=== PATIENT | female | born 1965 | race Caucasian/White ===

== ENCOUNTER 2022-06-08 15:41 | Observation (INO) ==
[2022-06-08] MEDS ORDERED: SODIUM CHLORIDE 0.9% 1000ML 2,000 ML IV ONE (16:03)
--- NOTE | 2022-06-08 16:07 | Emergency Department Note ---
Impression & Plan Syncope and collapse, Elevated troponin, Dehydration ED Provider Note NAME: FLACO AGUILERA AGE: 56 SEX: F : 1965 ARRIVES VIA: Ambulance INFORMANT: Patient ED PROVIDER(S): Derek Desai DO CHIEF COMPLAINT: syncope HPI: Patient is a 56-year-old female who presents the ER for syncopal episode. She was biking for about 2 hours and started not feeling well. She got off her bike and sat on a rock. She thinks she may have had some faint nausea. No chest pain or shortness of breath. No dysuria, urgency, or frequency. No belly pain. No other exacerbating or remitting factors. Following this she notes that she passed out. When she woke up she could not move her arms or legs. Her hands were clenched shut. When EMS arrived the tingling in her arms and legs completely resolved. ROS: See above HPI for pertinent positives & negatives. A total of 10 systems reviewed and were otherwise negative. PAST MEDICAL HISTORY:See Below PAST SURGICAL HISTORY:See Below FAMILY HISTORY:See Below SOCIAL HISTORY:See Below HOME MEDICATIONS:See Below ALLERGIES:See Below VITALS:See Below PHYSICAL EXAMINATION: GENERAL: Sitting up in bed, alert, well appearing, well nourished, no distress, non-toxic HEAD: Small abrasion over right chin EYE EXAM: normal conjunctiva. PERRL and EOM's grossly intact. OROPHARYNX: no exudate, no erythema, lips, buccal mucosa, and tongue normal and mucous membranes are moist NECK: supple, no nuchal rigidity, no adenopathy, non-tender LUNGS: Clear to auscultation. Normal chest wall mechanics HEART: no murmurs, S1 normal and S2 normal ABDOMEN: abdomen soft, non-tender, normo-active bowel sounds, no masses, no rebound or guarding. BACK: Back is symmetrical on inspection and there is no deformity, no midline tenderness, no CVA tenderness. SKIN: no rashes and no bruising UPPER EXTREMITIES: upper extremities are grossly normal. LOWER EXTREMITIES: No pitting edema. NEURO EXAM: Normal sensorium, cranial nerves II-XII intact, normal speech, no weakness of arms, no weakness of legs. No drift. Finger to nose intact. Gross sensation intact. MEDICAL DECISION MAKING: Patient is a 56-year-old female who presents ER for above-stated complaint. IV was established blood was obtained. Labs show a leukocytosis of 12,000. No significant anemia. D-dimer was negative. BMP with LFTs bilirubin and TSH was unremarkable. Troponin was elevated. COVID was negative. Patient was given IV fluids. Updated bedside. Discussed with hospitalist admitted for further work- up. Triage Nursing notes reviewed. Limited review of prior medical records performed Vital Signs: reviewed and remarkable for no significant abnormalities Differential diagnosis: Differential diagnosis includes etiologies such as vasovagal event, infection, hypoglycemia, electrolyte abnormalities, cardiac sources, intracerebral event, toxicologic, neurologic, as well as others were entertained. ER treatment provided: See below Diagnostics interpreted by me: ECG: Sinus rhythm rate 70 Left axis No PVCs QTC 434 Cardiac Monitoring: An order was placed for continuous cardiac monitoring. The monitor shows a rate of 71 with sinus rhythm. Laboratory studies: As stated above and show below. Imaging studies: Portable AP upright [address] head was negative Consultation(s): Discussed with hospitalist for further evaluation Procedures: none Critical Care: None Past Med/Surg History Medical History HTN (hypertension) Hypothyroidism Surgical History Hx of colonoscopy Family History Mother Breast cancer Hypertension Father Hypertension Daughter Aortic stenosis Social History Smoking Status: Never smoker Second Hand Exposure: No; Do You Dip or Chew Tobacco: No; Tobacco Cessation Education Requested by Patient: No Hx Alcohol Use: Yes Alcohol type: wine and hard liquor Alcohol Intake Frequency: 2-4 x/Month Hx Substance Use: No Preferred Language: Slovenian Communication Ability: Effective Body Sander Required: No Beliefs That Will Affect Care: None marital status: Current Living Situation: Spouse current occupational status: employed 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 Other Information That Helps Us Care for You: No Feels Safe at Home: Yes Safety Concerns: Feels Safe At This Time Assistive Devices: Glasses Allergies Allergies Allergy/AdvReac Type Severity Reaction Status Date / Time Sulfa (Sulfonamide Allergy Unknown Verified 06/08/22 18:18 Antibiotics) Home Meds Home Medications Medication Instructions Recorded Confirmed levothyroxine 75 mcg tablet 75 mcg PO DAILY 06/08/22 06/08/22 (Euthyrox) lisinopril 5 mg tablet 5 mg PO DAILY 06/08/22 06/08/22 Results & Data (ED) Vital Signs Vital Signs - 24 hr 06/08/22 15:55 06/08/22 15:55 06/08/22 15:55 Temperature 36.8 C Temperature Source Oral Pulse Rate 74 Pulse Rhythm Regular Respiratory Rate 19 Respiratory Effort / Characteristics Non-Labored Spontaneous Respiratory Depth Normal Respiratory Pattern Regular Blood Pressure 127/83 Blood Pressure Mean 97 Blood Pressure Position Lying Pulse Oximetry 98 98 98 Oxygen Delivery Method Room Air Room Air Room Air Oxygen Flow Rate 0 Sepsis Recent Fever Within 48 Hours No Sepsis New/Unexplained Change in Mental Status N/A Sepsis Action Taken by Nursing No Action Required 06/08/22 16:00 06/08/22 16:30 06/08/22 17:30 Temperature Temperature Source Pulse Rate 73 73 71 Pulse Rhythm Respiratory Rate 20 21 18 Respiratory Effort / Characteristics Respiratory Depth Respiratory Pattern Blood Pressure 116/76 116/78 115/79 Blood Pressure Mean 89 90 91 Blood Pressure Position Pulse Oximetry 98 97 96 Oxygen Delivery Method Room Air Oxygen Flow Rate Sepsis Recent Fever Within 48 Hours Sepsis New/Unexplained Change in Mental Status Sepsis Action Taken by Nursing 06/08/22 18:00 Temperature Temperature Source Pulse Rate 71 Pulse Rhythm Respiratory Rate 22 Respiratory Effort / Characteristics Respiratory Depth Respiratory Pattern Blood Pressure 122/89 Blood Pressure Mean 100 Blood Pressure Position Pulse Oximetry 97 Oxygen Delivery Method Oxygen Flow Rate Sepsis Recent Fever Within 48 Hours Sepsis New/Unexplained Change in Mental Status Sepsis Action Taken by Nursing Laboratory Data Result diagrams: 06/08/22 15:50 06/08/22 15:50 Lab Results 06/08/22 06/08/22 06/08/22 Range/Units 15:50 15:50 15:50 WBC 12.74 H (4.8-10.8) K/ul RBC 4.18 (3.93-5.22) M/uL Hgb 13.0 (12.0-16.0) g/dl Hct 37.9 (34.1-44.9) % MCV 90.7 (80.0-100.0) fL MCH 31.1 (25.0-34.0) pg MCHC 34.3 (32.0-36.0) g/dL RDW Std Deviation 40.5 (36.4-46.3) fL RDW Coeff of Mandy 12.2 (11.5-14.5) % Plt Count 240 (130-400) K/uL MPV 10.1 (9.4-12.3) fL Immature Gran % (Auto) 0.5 % Neut % (Auto) 78.1 % Lymph % (Auto) 12.6 % [place] % (Auto) 6.8 % Eos % (Auto) 1.7 % Baso % (Auto) 0.3 % Neut # (Auto) 9.95 H (1.4-6.5) K/uL Lymph # (Auto) 1.60 (1.2-3.4) K/uL [place] # (Auto) 0.87 H (0.24-0.82) K/uL Eos # (Auto) 0.22 (0-0.50) K/uL Baso # (Auto) 0.04 (0-0.2) K/uL Immature Gran # (Auto) 0.06 H (0.00-0.02) K/uL D-Dimer (0-500) ug/L FEU Sodium 140 (136-145) mmol/L Potassium 3.6 (3.5-5.1) mmol/L Chloride 107 (98-107) mmol/L Carbon Dioxide 21 (21-32) mmol/L Anion Gap 12 H (3-11) BUN 17 (6-23) mg/dl Creatinine 1.08 (0.6-1.2) mg/dl Est Cr Clr Drug Dosing 55.6 ml/min Est GFR ( Amer) 66.9 ml/min Est GFR (Non-Af Amer) 57.7 ml/min BUN/Creatinine Ratio 15.7 (10-20) Glucose 73 (70-99(Fasting)) mg/dl Calcium 9.1 (8.5-10.1) mg/dl Total Bilirubin 1.0 (0.2-1.0) mg/dl AST 19 (13-39) U/L ALT 12 (7-52) U/L Alkaline Phosphatase 70 (34-104) U/L Total Creatine Kinase 89 (26-192) U/L Troponin I High Sens 16.6 H (0-14) pg/ml Total Protein 6.6 (6.0-8.3) gm/dl Albumin 4.1 (3.4-5.0) gm/dl Globulin 2.5 (2.5-4.0) gm/dl Albumin/Globulin Ratio 1.6 (0.9-2) Lipase 27 (11-82) U/L 06/08/22 Range/Units 15:50 WBC (4.8-10.8) K/ul RBC (3.93-5.22) M/uL Hgb (12.0-16.0) g/dl Hct (34.1-44.9) % MCV (80.0-100.0) fL MCH (25.0-34.0) pg MCHC (32.0-36.0) g/dL RDW Std Deviation (36.4-46.3) fL RDW Coeff of Mandy (11.5-14.5) % Plt Count (130-400) K/uL MPV (9.4-12.3) fL Immature Gran % (Auto) % Neut % (Auto) % Lymph % (Auto) % [place] % (Auto) % Eos % (Auto) % Baso % (Auto) % Neut # (Auto) (1.4-6.5) K/uL Lymph # (Auto) (1.2-3.4) K/uL [place] # (Auto) (0.24-0.82) K/uL Eos # (Auto) (0-0.50) K/uL Baso # (Auto) (0-0.2) K/uL Immature Gran # (Auto) (0.00-0.02) K/uL D-Dimer 420 (0-500) ug/L FEU Sodium (136-145) mmol/L Potassium (3.5-5.1) mmol/L Chloride (98-107) mmol/L Carbon Dioxide (21-32) mmol/L Anion Gap (3-11) BUN (6-23) mg/dl Creatinine (0.6-1.2) mg/dl Est Cr Clr Drug Dosing ml/min Est GFR ( Amer) ml/min Est GFR (Non-Af Amer) ml/min BUN/Creatinine Ratio (10-20) Glucose (70-99(Fasting)) mg/dl Calcium (8.5-10.1) mg/dl Total Bilirubin (0.2-1.0) mg/dl AST (13-39) U/L ALT (7-52) U/L Alkaline Phosphatase (34-104) U/L Total Creatine Kinase (26-192) U/L Troponin I High Sens (0-14) pg/ml Total Protein (6.0-8.3) gm/dl Albumin (3.4-5.0) gm/dl Globulin (2.5-4.0) gm/dl Albumin/Globulin Ratio (0.9-2) Lipase (11-82) U/L Administered Medications Enoxaparin Sodium (Enoxaparin Inj 40 Mg/0.4 Ml Syr) 40 mg SQ Q24H GISELL Stop: 07/08/22 21:29 Last Admin: 06/08/22 21:49 Dose: 40 mg Documented By: BASIM Lactated Ringer's (Lr) 1,000 mls @ 80 mls/hr IV .[id number] GISELL Stop: 06/09/22 09:25 Last Admin: 06/08/22 21:25 Dose: 80 mls/hr Documented By: BASIM Discontinued Medications Sodium Chloride (Nss 1000ml) 2,000 mls @ 999 mls/hr IV .[id number] ONE Stop: 06/08/22 18:03 Last Infusion: 06/08/22 18:16 Dose: 0 mls/hr Documented By: Admin: 06/08/22 16:12 Dose: 999 mls/hr Documented By: OA Imaging Data Radiologist's Impression: Chest X-Ray 06/08/22 15:51 SINGLE VIEW CHEST CLINICAL HISTORY: Fall. Atypical chest pain. FINDINGS: An AP, portable, upright chest radiograph is obtained. No prior studies are available for comparison at the time of dictation. The cardiomediastinal silhouette is unremarkable. The lungs and pleural spaces are clear. No pneumothorax is seen. The bony thorax is grossly intact. IMPRESSION: No active disease in the chest. ACT 112: Negative or not required by law. Electronically signed by: Mian Baker M.D. 06/08/2022 4:[address] 06/08/22 16:03 CT SCAN OF THE BRAIN WITHOUT IV CONTRAST CLINICAL HISTORY: Syncope. COMPARISON STUDY: No priors P TECHNIQUE: Unenhanced axial CT scan of the brain is performed from the vertex to the skull base. A dose lowering technique was utilized adhering to the principles of ALARA. CT DOSE: 614.27 mGy.cm FINDINGS: Brain parenchyma: There is minimal microangiopathic change. There is no hemorrhage, mass effect, or evidence of acute territorial ischemia by CT criteria. Dwyer-white matter differentiation is preserved. No extra-axial fluid collection is seen. Ventricles, sulci, cisterns: Normal in configuration. Intracranial vasculature: The visualized intracranial vasculature at the skull base is normal in appearance. Calvarium: Unremarkable. Sinuses and mastoids: The visualized paranasal sinuses are clear. The mastoid air cells are well pneumatized. Orbits: The bony orbits are grossly intact. IMPRESSION: There is no hemorrhage, mass effect, or evidence of acute territorial ischemia by CT criteria. ACT 112: Negative or not required by law. Electronically signed by: Mian Baker M.D. 06/08/2022 5:13 PM Discharge Plan Visit Data Chief Complaint: Syncope Stated Complaint: syncope ED Provider: Derek Desai Discharge Problem: Syncope and collapse, Elevated troponin, Dehydration Patient Disposition: Admitted As Inpatient Discharge Instructions Interventions: ED Discharge Assessment Last Done: 06/08/22 20:20
[2022-06-08 16:13] LABS: Basophils # (auto) 0.04 K/uL (0-0.2); Basophils % (auto) 0.3 %; Eosinophils # (auto) 0.22 K/uL (0-0.50); Eosinophils % (auto) 1.7 %; Hematocrit (blood only) 37.9 % (34.1-44.9); Immature Granulocytes # (auto) 0.06 K/uL (0.00-0.02); Immature Granulocytes % (auto) 0.5 %; Lymphocytes % (auto) 12.6 %; Mean Corpuscular Hemoglobin 31.1 pg (25.0-34.0); Mean Corpuscular Hgb Conc 34.3 g/dL (32.0-36.0); Mean Corpuscular Volume 90.7 fL (80.0-100.0); Mean Platelet Volume 10.1 fL (9.4-12.3); Monocytes # (auto) 0.87 K/uL (0.24-0.82); Monocytes % (auto) 6.8 %; Neutrophils # (auto) 9.95 K/uL (1.4-6.5); Neutrophils % (auto) 78.1 %; Platelet Count 240 K/uL (130-400); RDW Coefficient of Variation 12.2 % (11.5-14.5); RDW Standard Deviation 40.5 fL (36.4-46.3); Red Blood Count 4.18 M/uL (3.93-5.22); White Blood Count 12.74 K/ul (4.8-10.8)
--- NOTE | 2022-06-08 16:15 | Electrocardiogram Report ---
Test Reason : Blood Pressure : / mmHG Vent. Rate : 074 BPM Atrial Rate : 074 BPM P-R Int : 148 ms QRS Dur : 082 ms QT Int : 418 ms P-R-T Axes : 025 031 049 degrees QTc Int : 463 ms Poor data quality, interpretation may be adversely affected Normal sinus rhythm Normal ECG No previous ECGs available Confirmed by Hua Maynard ([id number]) on 06/08/2022 4:14:52 PM Referred By: Confirmed By:Hua Maynard
[2022-06-08 16:31] LABS: Albumin Globulin Ratio 1.6 (0.9-2); Albumin Level 4.1 gm/dl (3.4-5.0); BUN Creatinine Ratio 15.7 (10-20); Calcium 9.1 mg/dl (8.5-10.1); Creatinine Clr Calc Pharmacy 55.6 ml/min; Est GFR (African American) 66.9 ml/min; Est GFR (Non-African American) 57.7 ml/min; Globulin 2.5 gm/dl (2.5-4.0); Potassium 3.6 mmol/L (3.5-5.1); Total Protein 6.6 gm/dl (6.0-8.3)
[2022-06-08 16:42] LABS: Troponin I High Sensitivity 16.6 pg/ml (0-14)
--- NOTE | 2022-06-08 16:48 | XRay Report ---
SINGLE VIEW CHEST CLINICAL HISTORY: Fall. Atypical chest pain. FINDINGS: An AP, portable, upright chest radiograph is obtained. No prior studies are available for c omparison at the time of dictation. The cardiomediastinal silhouette is unremarkable. The lungs and p leural spaces are clear. No pneumothorax is seen. The bony thorax is grossly intact. IMPRESSION: No active disease in the chest. ACT 112: Negative or not required by law. Electronically signed by: Mian Baker M.D. 06/08/2022 4:46 PM
--- NOTE | 2022-06-08 17:15 | CT Scan Report ---
CT SCAN OF THE BRAIN WITHOUT IV CONTRAST CLINICAL HISTORY: Syncope. COMPARISON STUDY: No priors P TECHNIQUE: Unenhanced axial CT scan of the brain is performed from the vertex to the skull base. A d ose lowering technique was utilized adhering to the principles of ALARA. CT DOSE: 614.27 mGy.cm FINDINGS: Brain parenchyma: There is minimal microangiopathic change. There is no hemorrhage, mass effect, or e vidence of acute territorial ischemia by CT criteria. Dwyer-white matter differentiation is preserved. No extra-axial fluid collection is seen. Ventricles, sulci, cisterns: Normal in configuration. Intracranial vasculature: The visualized intracranial vasculature at the skull base is normal in appe arance. Calvarium: Unremarkable. Sinuses and mastoids: The visualized paranasal sinuses are clear. The mastoid air cells are well pneu matized. Orbits: The bony orbits are grossly intact. IMPRESSION: There is no hemorrhage, mass effect, or evidence of acute territorial ischemia by CT crit zuleyma. ACT 112: Negative or not required by law. Electronically signed by: Mian Baker M.D. 06/08/2022 5:13 PM
--- NOTE | 2022-06-08 18:27 | History & Physical Report ---
Date of Service June 08, 2022 Assessment & Plan (1) Syncope and collapse: (2) Elevated troponin: (3) Dehydration: (4) HTN (hypertension): (5) Hypothyroidism: (6) Heat syncope, initial encounter: Plan This is a 56-year-old female who has significant past medical history of HTN and hypothyroidism who presents to ED after experiencing a syncope event prior to arrival. Patient experienced syncopal episode after approximately 2-2.5hr bike ride that ended up a steep incline on [facility]. She is normotensive in ED. Her troponin was mildly elevated at 16. She has never experienced any like this in the past. She is very active at baseline. Only thing she ate prior to and during bike ride was a handful of nuts and dried fruit. Initial glucose 73 and troponin 16.6. She received 2 L of IV fluid in ED. Her symptoms have mostly resolved after receiving IV fluid. Syncope and collapse Elevated troponin Concern for exertional syncope in setting of extreme exercise, heat exhaustion or heat illness and dehydration can't rule out cardiogenic syncope, yet pt was normotensive on arrival, temp was normal, admitting glucose 72, CK normal Admit to telemetry for observation Monitor on telemetry for any arrhythmia, would recommend outpatient ZIO monitor if telemetry unrevealing Continue gentle IV fluid with LR at 80 cc/h for additional liter Encourage nutrition Obtain echocardiogram -last 2018 with preserved EF, mild tricuspid regurg Repeat troponin in 2 hours mildly elevated 22.6, cycle every 6 hours, no CP or ecg change EKG in the morning Obtain D-dimer, if elevated obtain CTA chest and dopplers Monitor vitals closely, obtain orthostatics Dehydration Baseline creatinine 0.7 Creatinine 1.08 Continue to administer gentle IV fluid BMP in the morning Hypertension Hold lisinopril for now Reassess tomorrow to resume Hypothyroidism Obtain TSH Continue levothyroxine DVT prophylaxis: Lovenox Dispo: PCU, likely discharge in a.m. if work-up unremarkable Full code PCP: Sonja Pt was seen and examined in collaboration with Dr. Jay, please see addendum History of Present Illness Chief Complaint: Syncope prior to arrival Primary Care Provider: Morris Casillas MD This is a 56-year-old female who has significant past medical history of HTN and hypothyroidism who presents to ED after experiencing a syncope event prior to arrival. Her is at bedside. Patient was out for a bike ride by herself this afternoon. She did not eat anything for breakfast. While biking she did have a handful of nuts and dried fruit. She also drank approximately 20 ounces of water. She was biking for about 2 to 2-1/2 hours. She was going up and down [place] [employer]. She was climbing to the top of the mountain when she became very fatigued. She got off of her bike to get a drink of water and a snack and sat on a rock. While sitting on the rocks she felt very tired and very fatigued. Her legs were very sore. She called her to let him know where she was and that she was not feeling well. He encouraged her to get into the shade and to lie down. She then felt, "not right in the head." The next thing she knew she was off of the rock and laying sideways on her back. She has no known injury other than an abrasion to her chin and her legs are still sore. She is unsure how long she may have passed out for. She approximates 10 minutes or less. She first called her at about 2:00. He then talked to her again at 202. called EMS. She states that she she felt very frightened like she was, "dying." She denied losing bowel or bladder. She denies recent illness. She did have COVID in February with relatively mild symptoms. She denies fever, chills, sweats, chest pain, shortness of breath, URI symptoms, nausea, vomiting, abdominal pain, change in bowel or urinary habits. Her symptoms currently have resolved. In route patient did receive 1 L of IV fluid. She also had a sensation of her arms and legs tensing up. She was unable to move her arms and legs and had a numbness and tingling sensation a sending from her feet all the way to her shoulders. In ED she received 2 L of IV fluid. She was normotensive and temperature was normal. Her EKG was unremarkable. Initial troponin was mildly elevated at 16. Her head CT and chest x-ray was negative for any acute abnormality. She is a very active individual walking approximately 3-5 times a week. She typically goes for a long bike ride at least once every other week. Her bike rides typically do exceed 2 hours in duration. She has no known family history of any [place] or sudden . Her mother is of breast cancer. She has a strong family history of hypertension. Her daughter does have a history of aortic stenosis and history of CVA. Allergies Allergy/AdvReac Type Severity Reaction Status Date / Time Sulfa (Sulfonamide Allergy Unknown Verified 06/08/22 18:18 Antibiotics) Home Medications Medication Instructions Recorded Confirmed Type levothyroxine 75 mcg tablet 75 mcg PO DAILY 06/08/22 06/08/22 History (Euthyrox) lisinopril 5 mg tablet 5 mg PO DAILY 06/08/22 06/08/22 History Past Med/Surg History Medical History HTN (hypertension) Hypothyroidism Surgical History Hx of colonoscopy Family History Mother Breast cancer Hypertension Father Hypertension Daughter Aortic stenosis Social History Smoking Status: Never smoker Second Hand Exposure: No; Do You Dip or Chew Tobacco: No; Tobacco Cessation Education Requested by Patient: No Hx Alcohol Use: Yes Alcohol type: wine and hard liquor Alcohol Intake Frequency: 2-4 x/Month Hx Substance Use: No Preferred Language: Syriac Communication Ability: Effective Manager Neonatal Required: No Beliefs That Will Affect Care: None marital status: Current Living Situation: Spouse current occupational status: employed 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 Other Information That Helps Us Care for You: No Feels Safe at Home: Yes Safety Concerns: Feels Safe At This Time Assistive Devices: Glasses Review of Systems Review of Systems: All systems reviewed & are unremarkable except as noted in HPI & below Physical Exam Physical Exam: Constitutional: WD/WN, vitals as above, NAD, sitting up in bed, pleasant, conversing easily Head: Normocephalic, Atraumatic Eyes: PERRL, conjunctivae normal, anicteric sclerae ENMT: external ear and nose normal, oropharynx normal Neck: trachea midline, no thyromegaly normal visual inspection Respiratory: normal respiratory effort, lungs clear to auscultation, no wheeze, rales, rhonchi. Normal insp/exp effort, no accessory muscle use Cardiovascular: RRR, no murmur, no edema Vessels: no JVD or carotid bruit Chest: normal inspection of chest Abdomen: normal bowel sounds, soft, nontender, no hepatosplenomegaly Musculoskeletal: no cyanosis or clubbing, extremities motor strength 5/5 Skin: no rashes, warm and dry normal turgor Neurologic: PERRL, EOMI, accommodation nl, no face palsy, no dysarthria CN's II-XI intact bilaterally and moves all extremities Psychiatric: A+Ox3, euthymic affect Lymphatic: no cervical or axillary lymphadenopathy : deferred Results & Data Results & Data ([facility]) Vital Signs (Past 12 Hours) Vital Signs Temp Pulse Resp BP Pulse Ox O2 Del Method O2 Flow Rate 06/08/22 16:30 73 21 116/78 97 Room Air 06/08/22 16:00 73 20 116/76 98 06/08/22 15:55 98 Room Air 06/08/22 15:55 98 Room Air 0 06/08/22 15:55 36.8 C 74 19 127/83 98 Room Air Diagnostic Findings Chest X-Ray 06/08/22 15:51 SINGLE VIEW CHEST CLINICAL HISTORY: Fall. Atypical chest pain. FINDINGS: An AP, portable, upright chest radiograph is obtained. No prior studies are available for comparison at the time of dictation. The cardiomediastinal silhouette is unremarkable. The lungs and pleural spaces are clear. No pneumothorax is seen. The bony thorax is grossly intact. IMPRESSION: No active disease in the chest. ACT 112: Negative or not required by law. Electronically signed by: Mian Baker M.D. 06/08/2022 4:[address] 06/08/22 16:03 CT SCAN OF THE BRAIN WITHOUT IV CONTRAST CLINICAL HISTORY: Syncope. COMPARISON STUDY: No priors P TECHNIQUE: Unenhanced axial CT scan of the brain is performed from the vertex to the skull base. A dose lowering technique was utilized adhering to the principles of ALARA. CT DOSE: 614.27 mGy.cm FINDINGS: Brain parenchyma: There is minimal microangiopathic change. There is no hemorrhage, mass effect, or evidence of acute territorial ischemia by CT criteria. Dwyer-white matter differentiation is preserved. No extra-axial fluid collection is seen. Ventricles, sulci, cisterns: Normal in configuration. Intracranial vasculature: The visualized intracranial vasculature at the skull base is normal in appearance. Calvarium: Unremarkable. Sinuses and mastoids: The visualized paranasal sinuses are clear. The mastoid air cells are well pneumatized. Orbits: The bony orbits are grossly intact. IMPRESSION: There is no hemorrhage, mass effect, or evidence of acute territorial ischemia by CT criteria. ACT 112: Negative or not required by law. Electronically signed by: Mian Baker M.D. 06/08/2022 5:13 PM Medications Administered Medication List Discontinued Medications Sodium Chloride (Nss 1000ml) 2,000 mls @ 999 mls/hr IV .Q2H1M ONE Stop: 06/08/22 18:03 Last Infusion: 06/08/22 18:16 Dose: 0 mls/hr Documented By: Admin: 06/08/22 16:12 Dose: 999 mls/hr Documented By: OAM ECG Rate (beats per minute): 74 Rhythm: normal sinus Additional Comments: qtc 463ms COVID-19 Results Results COVID-19 Adm Lab Results: RBC 4.18 M/uL (3.93-5.22) 06/08/22 WBC 12.74 K/ul (4.8-10.8) H 06/08/22 Hgb 13.0 g/dl (12.0-16.0) 06/08/22 Hct 37.9 % (34.1-44.9) 06/08/22 Plt Count 240 K/uL (130-400) 06/08/22 Neutrophils (%) (Auto) 78.1 % 06/08/22 Lymphocytes (%) (Auto) 12.6 % 06/08/22 Monocytes # (Auto) 0.87 K/uL (0.24-0.82) H 06/08/22 Eosinophils # (Auto) 0.22 K/uL (0-0.50) 06/08/22 Immature Granulocyte % (Auto) 0.5 % 06/08/22 Neutrophils # (Auto) 9.95 K/uL (1.4-6.5) H 06/08/22 Lymphocytes # (Auto) 1.60 K/uL (1.2-3.4) 06/08/22 Monocytes # (Auto) 0.87 K/uL (0.24-0.82) H 06/08/22 Eosinophils # (Auto) 0.22 K/uL (0-0.50) 06/08/22 Basophils # (Auto) 0.04 K/uL (0-0.2) 06/08/22 Immature Granulocyte # (Auto) 0.06 K/uL (0.00-0.02) H 06/08 Na 140 mmol/L (136-145) 06/08/22 K 3.6 mmol/L (3.5-5.1) 06/08/22 Cl 107 mmol/L (98-107) 06/08/22 CO2 21 mmol/L (21-32) 06/08/22 Anion Gap 12 (3-11) H 06/08/22 BUN 17 mg/dl (6-23) 06/08/22 Creatinine 1.08 mg/dl (0.6-1.2) 06/08/22 BUN/Creatinine Ratio 15.7 (10-20) 06/08/22 Glucose Level 73 mg/dl (70-99(Fasting)) 06/08/22 Ca 9.1 mg/dl (8.5-10.1) 06/08/22 Total Bilirubin 1.0 mg/dl (0.2-1.0) 06/08/22 AST/SGOT 19 U/L (13-39) 06/08/22 ALT/SGPT 12 U/L (7-52) 06/08/22 Alkaline Phosphatase 70 U/L (34-104) 06/08/22 Total Protein 6.6 gm/dl (6.0-8.3) 06/08/22 Albumin 4.1 gm/dl (3.4-5.0) 06/08/22 Globulin 2.5 gm/dl (2.5-4.0) 06/08/22 Albumin/Globulin Ratio 1.6 (0.9-2) 06/08/22 Total CK 89 U/L (26-192) 06/08/22 D-Dimer 420 ug/L FEU (0-500) 06/08/22 SARS-CoV-2, RNA, NAAT NEGATIVE (NEGATIVE) 06/08/22 Chest X-Ray 06/08/22 Code Status & VTE Plan Code Status FULL CODE VTE Prophylaxis Plan VTE Prophylaxis will be ordered: Yes Supervising Physician Co-Signing Physician Notes I have seen and examined the patient and have discussed the case with the provider above. I agree with the assessment and plan as stated. 56 yo athletic female who suffered a syncopal episode while in the summer heat with little food or water after a strenuous 2 hour bike ride up hills. This is consistent with heat syncope with exercise associated collapse. She described waking up with severe cramping in her hands and paresthesias bilaterally. This is likely associated with her strenuous exercise and resolved shortly after recovery (within the hour). She has no current stroke symptoms, nor does she describe any in the field. Notably her glucose is only 73 an hour after she arrived to the ER, suggestive of a relative hypoglycemia contributing to symptoms. She did not feel overwhelmed by the heat, has no evidence of ACS currently. She has many questions related to percent blockage of arteries and could this be her heart? We discussed the process of screening for this overnight and the importance of alerting staff to any paini or SOB or other symptoms. She has not experienced this while exercising in the past. She is fully back to baseline now and physical exam is unremarkable with no gross focal neurologic deficits. Labwork reflects a mild or newly developing dehydration. She has normal electrolytes. Glucose as noted above. CK is normal. Trop is mildly elevated, with repeat pending. Exercise associated collapse, rule out underlying conduction abnormality or other structural cause with echo. Cardiology consult in am. Trend EKG and trop overnight. Give intravenous fluids. Educated on the importance of using sports drinks, hydrating and having enough food prior to strenuous exercise. Pierre,
[2022-06-08 19:38] LABS: D Dimer 420 ug/L FEU (0-500)
[2022-06-08] MEDS ORDERED: ALUMINUM/MAGNESIUM SUSP 30 ML UDC PO PRN (20:56)
[2022-06-08] MEDS ORDERED: MAGNESIUM HYDROXIDE SUSP 30 ML UDC PO PRN (20:56)
[2022-06-08] MEDS ORDERED: LACTATED RINGER'S 1,000 ML IV SCH (20:56)
[2022-06-08] MEDS ORDERED: PROMETHAZINE HCL 6.25 MG in SODIUM CHLORIDE 0.9% 50 ML IV PRN (20:56)
[2022-06-08] MEDS ORDERED: ACETAMINOPHEN 325 MG TAB PO PRN (20:56)
[2022-06-08] MEDS ORDERED: POLYETHYLENE (MIRALAX) 17 GM PACK PO PRN (20:56)
[2022-06-08] MEDS: ENOXAPARIN INJ 40 MG/0.4 ML SYR SQ SCH (21:49)
[2022-06-09] MEDS: LEVOTHYROXINE SODIUM 75 MCG TABLET PO SCH (05:37)
[2022-06-09] MEDS ORDERED: ATROPINE SULFATE 0.1 MG/ML 10ML SYR IV PRN (06:04)
[2022-06-09] MEDS ORDERED: LEVOTHYROXINE SODIUM 75 MCG TABLET PO SCH (09:00)
[2022-06-09 09:54] LABS: Basophils # (auto) 0.04 K/uL (0-0.2); Basophils % (auto) 0.6 %; Eosinophils # (auto) 0.66 K/uL (0-0.50); Eosinophils % (auto) 9.6 %; Hemoglobin 11.6 g/dl (12.0-16.0); Immature Granulocytes # (auto) 0.02 K/uL (0.00-0.02); Immature Granulocytes % (auto) 0.3 %; Lymphocytes # (auto) 2.25 K/uL (1.2-3.4); Lymphocytes % (auto) 32.9 %; Mean Corpuscular Hemoglobin 30.9 pg (25.0-34.0); Mean Corpuscular Hgb Conc 33.1 g/dL (32.0-36.0); Mean Corpuscular Volume 93.3 fL (80.0-100.0); Mean Platelet Volume 10.1 fL (9.4-12.3); Monocytes # (auto) 0.37 K/uL (0.24-0.82); Monocytes % (auto) 5.4 %; Neutrophils % (auto) 51.2 %; Platelet Count 194 K/uL (130-400); RDW Coefficient of Variation 12.7 % (11.5-14.5); RDW Standard Deviation 43.8 fL (36.4-46.3); Red Blood Count 3.75 M/uL (3.93-5.22); White Blood Count 6.84 K/ul (4.8-10.8)
[2022-06-09 10:21] LABS: Albumin Globulin Ratio 1.7 (0.9-2); Albumin Level 3.8 gm/dl (3.4-5.0); BUN Creatinine Ratio 21.1 (10-20); Bilirubin,Total 0.9 mg/dl (0.2-1.0); Creatinine Clr Calc Pharmacy 85.5 ml/min; Est GFR (African American) 111.1 ml/min; Est GFR (Non-African American) 95.9 ml/min; Globulin 2.3 gm/dl (2.5-4.0); Magnesium 1.9 mg/dl (1.7-2.4); Potassium 4.1 mmol/L (3.5-5.1); Total Protein 6.1 gm/dl (6.0-8.3)
[2022-06-09 10:53] LABS: Lyme Ab IgG w/WB Rflx Negative (Negative)
[2022-06-09 11:08] LABS: Lyme Ab IgM w/WB Rflx Equivocal (Negative)
--- NOTE | 2022-06-09 11:39 | Cardiology Consultation ---
Date of Consultation June 09, 2022 Assessment & Plan (1) Heat syncope, initial encounter: (2) Dehydration: (3) Elevated troponin: (4) HTN (hypertension): (5) Hypothyroidism: Plan Patient presents with a syncopal event in the setting of extreme exercise and volume depletion. No arrhythmias on monitor. Structurally normal heart by echocardiogram. No ischemic EKG changes. Minimal troponin elevation likely secondary to extreme exercise. No cardiac source for syncopal event found. No further cardiac test intervention necessary at this time. No cardiac follow-up necessary. Okay to discharge to home from a cardiac standpoint. History of Present Illness Reason for Consultation: Syncope Requesting Physician: [facility] hospitalist group Attending Physician: Wai Santo MD History of Present Illness It was my pleasure to see Mrs. Obrien in cardiac consultation today June 09, 2022. The patient is a very pleasant, athletic and healthy 56-year-old woman who presented to [facility] after a syncopal event. She states that she was almost 3 hours into an outdoor bike ride yesterday when she stopped to rest and drink some fluids when she lost consciousness. She states that as she was sitting there she did start developing numbness and tingling in her extremities along with lightheadedness and she lost consciousness. She denied any associated chest pain, shortness of breath or palpitations. She denies any previous similar episodes. She states that she was drinking water yesterday but notes that she did not have to micturate during her 3-hour ride. Patient Active Problem List Diagnosis Code ADJ DISORDER W/DEPRES MOOD F43.21 Hypothyroidism E03.9 Systolic murmur R01.1 Diastolic dysfunction I51.89 Mild tricuspid regurgitation I07.1 Hx of nonmelanoma skin cancer Z85.828 Essential hypertension with goal blood pressure less than 130/80 I10 Allergies Allergy/AdvReac Type Severity Reaction Status Date / Time Sulfa (Sulfonamide Allergy Unknown Verified 06/08/22 18:18 Antibiotics) Home Medications Medication Instructions Recorded Confirmed Type levothyroxine 75 mcg tablet 75 mcg PO DAILY 06/08/22 06/08/22 History (Euthyrox) lisinopril 5 mg tablet 5 mg PO DAILY 06/08/22 06/08/22 History Patient History Medical History HTN (hypertension) Hypothyroidism Surgical History Hx of colonoscopy Family History Mother Breast cancer Hypertension Father Hypertension Daughter Aortic stenosis Social History Smoking Status: Never smoker Second Hand Exposure: No; Do You Dip or Chew Tobacco: No; Tobacco Cessation Education Requested by Patient: No Hx Alcohol Use: Yes Alcohol type: wine and hard liquor Alcohol Intake Frequ ency: 2-4 x/Month Hx Substance Use: No Preferred Language: Armenian Communication Ability: Effective Memorial Counselor Required: No Beliefs That Will Affect Care: None marital status: Current Living Situation: Spouse current occupational status: 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 No acute distress. HEENT: Normocephalic, atraumatic. Pupils equal, round and reactive to light and accommodation. Extraocular muscles are intact. Anicteric sclera. Moist mucous membranes. Neck: No JVD. No bruit. Cardiovascular: Regular. No S-4. Normal S-1 and S-2. No S-3. No murmurs, rubs or gallops. Pulmonary: Clear to auscultation bilaterally. No rales, rhonchi, or wheezing. Abdomen: Bowel sounds x 4, soft. No rebound, guarding or tenderness. No organomegaly. Extremities: No clubbing, cyanosis or edema. +2 pedal pulses bilaterally. Skin: Warm and dry. Results & Data ([facility]) Vital Signs (Past 12 Hours) Vital Signs Temp Pulse Pulse Resp BP Pulse Ox O2 Del Method 06/09/22 08:00 46 L 06/09/22 08:00 36.5 C 61 16 121/68 06/09/22 07:29 36.6 C 58 L 16 111/71 100 Room Air 06/09/22 06:04 45 L 16 131/79 98 Room Air 06/09/22 03:11 36.3 C L 51 L 17 105/65 97 Room Air 06/09/22 03:14 65 128/84 06/09/22 03:13 69 116/76 06/09/22 03:11 36.3 C L 51 L 17 105/65 97 Room Air
--- NOTE | 2022-06-09 14:11 | Magnetic Resonance Report ---
MRI OF THE BRAIN WITHOUT CONTRAST CLINICAL HISTORY: Syncope, R/O CVA COMPARISON STUDY: Head CT June 08, 2022. TECHNIQUE: Utilizing a 1.5 Jaida magnet and dedicated coil, multiplanar, multiecho imaging of the bra in was performed without IV contrast. FINDINGS: There are no foci of restricted diffusion to suggest acute infarct. No acute intracranial h emorrhage, midline shift or mass effect is present. Ventricular system is normal. Basal cisterns are patent. There are no extra-axial collections. Flow-voids for the major intracranial vessels are prese nt. Scattered white matter T2 hyperintense foci are noted. The largest is a 1 cm subcortical focus wi thin the right frontal lobe on coronal FLAIR sequences image 8 of . Calvarial signal is within norm al limits. There is minimal mucosal thickening of the inferior left maxillary sinus. IMPRESSION: 1. No acute intracranial findings. 2. Scattered white matter T2 hyperintense foci, including a 1 cm subcortical focus within the right f rontal lobe. Although indeterminate, this statistically reflects small vessel disease. Demyelinating process or underlying lesion are considered less likely. Follow-up MRI the brain with and without con trast in 3 months is recommended. ACT 112: Negative or not required by law. Electronically signed by: Kartik Javier M.D. 06/09/2022 2:09 PM
--- NOTE | 2022-06-09 14:12 | Hospitalist Progress Note ---
Date of Service June 09, 2022 Assessment & Plan (1) Syncope and collapse: (2) Elevated troponin: (3) Dehydration: (4) HTN (hypertension): (5) Hypothyroidism: (6) Heat syncope, initial encounter: Plan Patient is a 56 yr female who has significant past medical history of HTN and hypothyroidism who presents to ED after experiencing a syncope event prior to arrival. Syncope DD: Dehydration, Hypoglycemia, Hypotension, Heat Exhaustion, R/O Seizure-although less likely Unclear Etiology Suspected small vessel disease --MRI Brain:No acute intracranial findings. Scattered white matter T2 hyperintense foci, including a 1 cm subcortical focus within the right frontal lobe. Although indeterminate, this statistically reflects small vessel disease. Demyelinating process or underlying lesion are considered less likely. Follow-up MRI the brain with and without contrast in 3 months is recommended. --CT Head:There is no hemorrhage, mass effect, or evidence of acute territorial ischemia by CT criteria. --ECHO: Normal study --Mild elevation of Troponin likely due to severe exercise --Check Lipid Panel --Lyme Screen pending. --EEG pending --Check Orthostatics --Monitor for any Arrhythmia -- Appreciate Cardiology Input --Will need repeat MRI brain with Contrast in 3 months and follow up with Neurology upon discharge --No driving recommended until cleared by Neurology upon discharge --No indication for Aspirin currently. Discussed with Neurologist magnetic resonance imaging coordinator. on 06/09/22 Dehydration Received IV fluids Hypertension Held lisinopril BP stable Resume meds as able Hypothyroidism TSH normal Continue levothyroxine DVT Px: Lovenox SQ Dispo: PCU, likely discharge in a.m. if work-up unremarkable Full code PCP: Sonja Admission and Anticipated Discharge Date Admission Date: June 08, 2022 Subjective Patient is seen and examined at bedside States feeling well today Denies any chest pain, shortness of breath, dizziness, nausea, abdominal pain Family at bedside Discussed with neurology today Review of Systems Review of Systems: All systems reviewed & are unremarkable except as noted in Subjective Physical Exam Physical Exam: Physical Exam: Vitals signs as noted above General Appearance:Moderately built and nourished, no apparent distress Head: normocephalic, Atraumatic Eyes: normal inspection, EOMI Neck: supple, Trachea midline Respiratory/Chest: Normal breath sounds, CTA, No accessory muscle use Cardiovascular: S1, S2, No murmur Abdomen/GI:Soft, Non tender, Bowel sounds present Extremities/Musculoskeletal:normal inspection, no edema Neurologic/Psych:AAOX3, grossly no focal neurological deficits Skin: normal color, warm Results & Data Results & Data ([facility]) Vital Signs (Past 12 Hours) Vital Signs Temp Pulse Pulse Resp BP Pulse Ox O2 Del Method 06/09/22 11:47 36.7 C 80 20 121/80 94 06/09/22 08:00 46 L 06/09/22 08:00 36.5 C 61 16 121/68 06/09/22 07:29 36.6 C 58 L 16 111/71 100 Room Air 06/09/22 06:04 45 L 16 131/79 98 Room Air 06/09/22 03:11 36.3 C L 51 L 17 105/65 97 Room Air 06/09/22 03:14 65 128/84 06/09/22 03:13 69 116/76 06/09/22 03:11 36.3 C L 51 L 17 105/65 97 Room Air Laboratory Results Short CBC 06/08/22 06/09/22 Range/Units 15:50 09:18 WBC 12.74 H 6.84 (4.8-10.8) K/ul Hgb 13.0 11.6 L (12.0-16.0) g/dl Hct 37.9 35.0 (34.1-44.9) % Plt Count 240 194 (130-400) K/uL BMP 06/08/22 06/09/22 15:50 09:18 Sodium 140 141 Potassium 3.6 4.1 Chloride 107 109 H Carbon Dioxide 21 27 BUN 17 15 Creatinine 1.08 0.71 D Glucose 73 110 H Calcium 9.1 9.0 Cardiac Enzymes 06/08/22 06/09/22 Range/Units 15:50 09:18 Total Creatine Kinase 89 865 H (26-192) U/L Liver Function 06/08/22 06/09/22 Range/Units 15:50 09:18 Total Bilirubin 1.0 0.9 (0.2-1.0) mg/dl AST 19 45 H (13-39) U/L ALT 12 21 (7-52) U/L Alkaline Phosphatase 70 61 (34-104) U/L Albumin 4.1 3.8 (3.4-5.0) gm/dl
[2022-06-09] MEDS: ENOXAPARIN INJ 40 MG/0.4 ML SYR SQ SCH (20:14)
--- NOTE | 2022-06-09 20:35 | Electrocardiogram Report ---
Test Reason : Blood Pressure : / mmHG Vent. Rate : 048 BPM Atrial Rate : 048 BPM P-R Int : 180 ms QRS Dur : 072 ms QT Int : 468 ms P-R-T Axes : 065 017 041 degrees QTc Int : 418 ms Sinus bradycardia Otherwise normal ECG When compared with ECG of 08-JUN-2022 15:47, Vent. rate has decreased BY 26 BPM Confirmed by Hua Maynard ([id number]) on 06/09/2022 8:35:13 PM Referred By: REFERRED SELF Confirmed By:Hua Maynard
[2022-06-10] MEDS: LEVOTHYROXINE SODIUM 75 MCG TABLET PO SCH (06:10)
[2022-06-10 06:55] LABS: Hematocrit (blood only) 36.3 % (34.1-44.9); Mean Corpuscular Hemoglobin 30.8 pg (25.0-34.0); Mean Corpuscular Hgb Conc 33.1 g/dL (32.0-36.0); Mean Corpuscular Volume 93.3 fL (80.0-100.0); Mean Platelet Volume 10.3 fL (9.4-12.3); Platelet Count 190 K/uL (130-400); RDW Coefficient of Variation 12.7 % (11.5-14.5); RDW Standard Deviation 43.6 fL (36.4-46.3); Red Blood Count 3.89 M/uL (3.93-5.22); White Blood Count 6.15 K/ul (4.8-10.8)
[2022-06-10 07:19] LABS: BUN Creatinine Ratio 18.1 (10-20); Calcium 9.3 mg/dl (8.5-10.1); Chol HDL Ratio 3.4 (0-5); Est GFR (African American) 109.3 ml/min; Est GFR (Non-African American) 94.3 ml/min; Magnesium 1.9 mg/dl (1.7-2.4)
[2022-06-10 07:44] LABS: Estimated Average Glucose 111 mg/dl; Hemoglobin A1C 5.5 % (4.5-5.6)
--- NOTE | 2022-06-10 10:52 | Electroencephalogram ---
EEG Procedure Note Date of Service June 10, 2022 Start / End Times Start Time: 7:32 End Time: 7:52 Referring Physician Wai Santo MD History Syncope. Home Medication List Medication Instructions Recorded Confirmed Type levothyroxine 75 mcg tablet 75 mcg PO DAILY 06/08/22 06/08/22 History (Euthyrox) lisinopril 5 mg tablet 5 mg PO DAILY 06/08/22 06/08/22 History Inpatient Medication List Enoxaparin Sodium (Enoxaparin Inj 40 Mg/0.4 Ml Syr) 40 mg SQ Q24H GISELL Stop: 07/08/22 21:29 Last Admin: 06/09/22 20:14 Dose: 40 mg Documented By: Admin: 06/08/22 21:49 Dose: 40 mg Documented By: BASIM Levothyroxine Sodium (Levothyroxine Sodium 75 Mcg Tablet) 75 mcg PO DAILYBB GISELL Stop: 07/09/22 06:29 Last Admin: 06/10/22 06:10 Dose: 75 mcg Documented By: Admin: 06/09/22 05:37 Dose: 75 mcg Documented By: BASIM Discontinued Medications Sodium Chloride (Nss 1000ml) 2,000 mls @ 999 mls/hr IV .Q2H1M ONE Stop: 06/08/22 18:03 Last Infusion: 06/08/22 18:16 Dose: 0 mls/hr Documented By: Admin: 06/08/22 16:12 Dose: 999 mls/hr Documented By: FELICIANO Lactated Ringer's (Lr) 1,000 mls @ 80 mls/hr IV .[id number] GISELL Stop: 06/09/22 09:25 Last Infusion: 06/09/22 10:20 Dose: 0 mls/hr Documented By: KJFlor Admin: 06/08/22 21:25 Dose: 80 mls/hr Documented By: BASIM Description This is a 21 electrode EEG with a single channel dedicated to limited EKG. The electrodes were placed in accordance with the International 10-20 system. Interpretation Background activity: There is a well organized background activity, composed of alpha, beta, and theta waveforms. 9 Hz, low amplitude posterior activity is recorded symmetrically, which attenuates with eye opening bilaterally. Sleep pattern: There is generalized sleep spindles and occasional vertex sharp waves are recorded bilaterally, as an indicator of stage II sleep. Stimulation maneuvers: Photic stimulations induced posterior driving responses bilaterally and symmetrically. Hyperventilation is not attempted. Abnormal activity: There is no electrographic seizures, or epileptiform discharges. Impression: This is a normal EEG, recorded in wakefulness and sleep. There is no electrographic seizures or epileptogenic discharge. Clinical Correlation Normal interictal EEG cannot rule out seizure disorder definitively. If clinically indicated, a follow-up study with prolonged recording and sleep deprivation might offer further information.
--- NOTE | 2022-06-10 12:41 | Hospitalist Progress Note ---
Date of Service June 10, 2022 Assessment & Plan (1) Syncope and collapse: (2) Elevated troponin: (3) Dehydration: (4) HTN (hypertension): (5) Hypothyroidism: (6) Heat syncope, initial encounter: Plan Patient is a 56 yr female who has significant past medical history of HTN and hypothyroidism who presents to ED after experiencing a syncope event prior to arrival. Syncope DD: Dehydration, Hypoglycemia, Hypotension, Heat Exhaustion, R/O Seizure-although less likely Unclear Etiology Suspected small vessel disease --MRI Brain:No acute intracranial findings. Scattered white matter T2 hyperintense foci, including a 1 cm subcortical focus within the right frontal lobe. Although indeterminate, this statistically reflects small vessel disease. Demyelinating process or underlying lesion are considered less likely. Follow-up MRI the brain with and without contrast in 3 months is recommended. --CT Head:There is no hemorrhage, mass effect, or evidence of acute territorial ischemia by CT criteria. --ECHO: Normal study --Mild elevation of Troponin likely due to severe exercise --Lipid Panel wnl --Lyme Screen pending (Denies Tick Bite, rash). --EEG:This is a normal EEG, recorded in wakefulness and sleep. There is no electrographic seizures or epileptogenic discharge. --Normal Orthostatics --Monitor for any Arrhythmia -- Appreciate Cardiology Input --Will need repeat MRI brain with Contrast in 3 months and follow up with Ne urology upon discharge --No driving recommended until cleared by Neurology upon discharge --No indication for Aspirin currently. Discussed with Neurologist wealth management consultant. on 06/09/22 Dehydration Received IV fluids Resolved Hypertension On lisinopril Hypothyroidism TSH normal Continue levothyroxine DVT Px: Lovenox SQ Code Status Full code Disposition Home Admission and Anticipated Discharge Date Admission Date: June 08, 2022 Subjective Patient is seen and examined at bedside No new complaints, feels well Denies any chest pain, shortness of breath, dizziness, nausea, abdominal pain Plan to discharge home today Review of Systems Review of Systems: All systems reviewed & are unremarkable except as noted in Subjective Physical Exam Physical Exam: Physical Exam: Vitals signs as noted above General Appearance:Moderately built and nourished, no apparent distress Head: normocephalic, Atraumatic Eyes: normal inspection, EOMI Neck: supple, Trachea midline Respiratory/Chest: Normal breath sounds, CTA, No accessory muscle use Cardiovascular: S1, S2, No murmur Abdomen/GI:Soft, Non tender, Bowel sounds present Extremities/Musculoskeletal:normal inspection, no edema Neurologic/Psych:AAOX3, grossly no focal neurological deficits Skin: normal color, warm Results & Data Results & Data ([facility]) Vital Signs (Past 12 Hours) Vital Signs Temp Pulse Pulse Resp BP Pulse Ox O2 Del Method 06/10/22 10:48 36.7 C 62 18 135/78 100 Room Air 06/10/22 08:00 40 L 06/10/22 08:03 36.6 C 47 L 19 154/78 H 99 Room Air Laboratory Results Short CBC 06/10/22 Range/Units 06:13 WBC 6.15 (4.8-10.8) K/ul Hgb 12.0 (12.0-16.0) g/dl Hct 36.3 (34.1-44.9) % Plt Count 190 (130-400) K/uL BMP 06/10/22 06:13 Sodium 142 Potassium 5.0 D Chloride 110 H Carbon Dioxide 29 BUN 13 Creatinine 0.72 Glucose 93 Calcium 9.3
--- NOTE | 2022-06-10 13:24 | Discharge Summary ---
Date of Service June 10, 2022 Admission HPI Per Admitting Provider This is a 56-year-old female who has significant past medical history of HTN and hypothyroidism who presents to ED after experiencing a syncope event prior to arrival. Her is at bedside. Patient was out for a bike ride by herself this afternoon. She did not eat anything for breakfast. While biking she did have a handful of nuts and dried fruit. She also drank approximately 20 ounces of water. She was biking for about 2 to 2-1/2 hours. She was going up and down [place] [address]. She was climbing to the top of the mountain when she became very fatigued. She got off of her bike to get a drink of water and a snack and sat on a rock. While sitting on the rocks she felt very tired and very fatigued. Her legs were very sore. She called her to let him know where she was and that she was not feeling well. He encouraged her to get into the shade and to lie down. She then felt, "not right in the head." The next thing she knew she was off of the rock and laying sideways on her back. She has no known injury other than an abrasion to her chin and her legs are still sore. She is unsure how long she may have passed out for. She approximates 10 minutes or less. She first called her at about 2:00. He then talked to her again at . called EMS. She states that she she felt very frightened like she was, "dying." She denied losing bowel or bladder. She denies recent illness. She did have COVID in February with relatively mild symptoms. She denies fever, chills, sweats, chest pain, shortness of breath, URI symptoms, nausea, vomiting, abdominal pain, change in bowel or urinary habits. Her symptoms currently have resolved. In route patient did receive 1 L of IV fluid. She also had a sensation of her arms and legs tensing up. She was unable to move her arms and legs and had a numbness and tingling sensation a sending from her feet all the way to her shoulders. In ED she received 2 L of IV fluid. She was normotensive and temperature was normal. Her EKG was unremarkable. Initial troponin was mildly elevated at 16. Her head CT and chest x-ray was negative for any acute abnormality. She is a very active individual walking approximately 3-5 times a week. She typically goes for a long bike ride at least once every other week. Her bike rides typically do exceed 2 hours in duration. She has no known family history of any FL or sudden . Her mother is of breast cancer. She has a strong family history of hypertension. Her daughter does have a history of aortic stenosis and history of CVA. Admission Exam Per Admitting Provider Physical Exam Physical Exam: Constitutional: WD/WN, vitals as above, NAD, sitting up in bed, pleasant, conversing easily Head: Normocephalic, Atraumatic Eyes: PERRL, conjunctivae normal, anicteric sclerae ENMT: external ear and nose normal, oropharynx normal Neck: trachea midline, no thyromegaly normal visual inspection Respiratory: normal respiratory effort, lungs clear to auscultation, no wheeze, rales, rhonchi. Normal insp/exp effort, no accessory muscle use Cardiovascular: RRR, no murmur, no edema Vessels: no JVD or carotid bruit Chest: normal inspection of chest Abdomen: normal bowel sounds, soft, nontender, no hepatosplenomegaly Musculoskeletal: no cyanosis or clubbing, extremities motor strength 5/5 Skin: no rashes, warm and dry normal turgor Neurologic: PERRL, EOMI, accommodation nl, no face palsy, no dysarthria CN's II-XI intact bilaterally and moves all extremities Psychiatric: A+Ox3, euthymic affect Lymphatic: no cervical or axillary lymphadenopathy : deferred Principal Diagnosis Syncope Abnormal MRI brain Discharge Data Allergies Allergy/AdvReac Type Severity Reaction Status Date / Time Sulfa (Sulfonamide Allergy Unknown Verified 06/08/22 18:18 Antibiotics) Consultations 06/08/22 19:43 ED Decision to Admit Stat 06/08/22 19:56 Consult Cardiology Routine Procedures Performed MRI BRAIN: FINDINGS: There are no foci of restricted diffusion to suggest acute infarct. No acute intracranial hemorrhage, midline shift or mass effect is present. Ventricular system is normal. Basal cisterns are patent. There are no extra- axial collections. Flow-voids for the major intracranial vessels are present. Scattered white matter T2 hyperintense foci are noted. The largest is a 1 cm subcortical focus within the right frontal lobe on coronal FLAIR sequences image 8 of . Calvarial signal is within normal limits. There is minimal mucosal thickening of the inferior left maxillary sinus. IMPRESSION: 1. No acute intracranial findings. 2. Scattered white matter T2 hyperintense foci, including a 1 cm subcortical focus within the right frontal lobe. Although indeterminate, this statistically reflects small vessel disease. Demyelinating process or underlying lesion are considered less likely. Follow-up MRI the brain with and without contrast in 3 months is recommended. Ordered Studies 06/08/22 16:03 CT head/brain wo con Stat 06/09/22 10:44 MRI Brain [MR brain wo con] Urgent Hospital Course (1) Syncope and collapse: (2) Elevated troponin: (3) Dehydration: (4) HTN (hypertension): (5) Hypothyroidism: (6) Heat syncope, initial encounter: Plan Patient is a 56 yr female who has significant past medical history of HTN and hypothyroidism who presents to ED after experiencing a syncope event prior to arrival. Syncope DD: Dehydration, Hypoglycemia, Hypotension, Heat Exhaustion, R/O Seizure-although less likely Unclear Etiology Suspected small vessel disease --MRI Brain:No acute intracranial findings. Scattered white matter T2 hyperintense foci, including a 1 cm subcortical focus within the right frontal lobe. Although indeterminate, this statistically reflects small vessel disease. Demyelinating process or underlying lesion are considered less likely. Follow-up MRI the brain with and without contrast in 3 months is recommended. --CT Head:There is no hemorrhage, mass effect, or evidence of acute territorial ischemia by CT criteria. --ECHO: Normal study --Mild elevation of Troponin likely due to severe exercise --Lipid Panel wnl --Lyme Screen pending (Denies Tick Bite, rash). --EEG:This is a normal EEG, recorded in wakefulness and sleep. There is no electrographic seizures or epileptogenic discharge. --Normal Orthostatics --Monitor for any Arrhythmia -- Appreciate Cardiology Input --Will need repeat MRI brain with Contrast in 3 months and follow up with Neurology upon discharge --No driving recommended until cleared by Neurology upon discharge --No indication for Aspirin currently. Discussed with Neurologist hydrogenation still operator. on 06/09/22 Dehydration Received IV fluids Resolved Hypertension On lisinopril Hypothyroidism TSH normal Continue levothyroxine DVT Px: Lovenox SQ Code Status Full code Disposition Home Total Time Total Time Spent Total Time Spent (In Minutes): 54 minutes Discharge Plan Discharge Items Patient Disposition: Home - Self-Care Reason For Visit: SYNCOPE Discharge Diagnosis: Syncope Abnormal MRI brain Activity: Per Instructions section Exercise/Sports: Gradually increase as tolerated Driving/Machine Use: No driving recommended until cleared by your Neurologist Non-emergency contact: Primary Care Provider and Neurologist Call non-emergency contact if: you have any medication questions, your symptoms worsen and you have a fever Follow-up/Referrals: Morris Casillas MD [Primary Care Provider] - (Date & Time 06/18/2022 11:00 AM Provider Morris Casillas MD Department General Internal Medicine [facility] ) Liudmila Valdes PA-C [Physician Wet And Dry Sugar Bin Operator] - (Date & Time 06/25/2022 11:20 AM Provider Liudmila Valdes PA-C Department Neurology [facility] ) Diet: Heart Healthy Addtl Attending Provider Instructions: Follow up with your Primary Care Physician on 06/18/2022 11:00 AM as scheduled Follow up with your Neurologist Dr.Kathleen Lucio BATEMAN on 06/25/2022 11:20 AM as scheduled ---Your blood test for Lyme's disease is pending at the time of discharge. Please follow up with your physician for results and further management as advised. --Your Neurologist recommended repeat MRI brain in 3 months to re-asses white matter changes noted on initial MRI. Follow up with your Neurologist for further management. Seek immediate medical attention if your symptoms reoccur or worsen Please take all medications as instructed on discharge list below. Please call if you have any questions or problems. You can reach a [facility] hospitalist on duty at [facility] 24 hours a day by calling [phone] Pending Studies at Discharge: Yes Studies:: Lyme Serology Stand-Alone Forms: My [facility] [employer] Consult[employer], Smoking Cessation Medications and DC Order Prescriptions: Continued levothyroxine [Euthyrox] 75 mcg tablet 75 mcg PO DAILY lisinopril 5 mg tablet 5 mg PO DAILY Discharge Orders: Discharge Order (Routine); Ordered 06/10/22 Ordered By: Wai Santo Admission Data Admit Date/Time: 06/08/22 18:23 Attending Provider: Wai Santo Admit Provider: Celena Jay Primary Care Provider: Morris Casillas Other Providers: Salas Lo ; Celena Jay
--- NOTE | 2022-06-11 05:55 | Electrocardiogram Report ---
Test Reason : Blood Pressure : / mmHG Vent. Rate : 039 BPM Atrial Rate : 039 BPM P-R Int : 178 ms QRS Dur : 078 ms QT Int : 486 ms P-R-T Axes : 056 017 043 degrees QTc Int : 391 ms Marked sinus bradycardia Abnormal ECG When compared with ECG of 09-JUN-2022 05:11, No significant change was found Confirmed by Yaya Deluca ([id number]) on 06/11/2022 5:54:25 AM Referred By: REFERRED SELF Confirmed By:Yaya Deluca
[2022-06-12 03:02] LABS: 18KDIGG Band NON-REACTIVE; 23KDIGG Band NON-REACTIVE; 23KDIGM Band REACTIVE; 28KDIGG Band NON-REACTIVE; 30KDIGG Band NON-REACTIVE; 39KDIGG Band NON-REACTIVE; 39KDIGM Band NON-REACTIVE; 41KDIGG Band NON-REACTIVE; 41KDIGM Band NON-REACTIVE; 45KDIGG Band NON-REACTIVE; 58KDIGG Band NON-REACTIVE; 66KDIGG Band NON-REACTIVE; 93KDIGG Band NON-REACTIVE; Lyme Antibodies, WB IgG NEGATIVE (NEGATIVE); Lyme Antibodies, WB IgM NEGATIVE (NEGATIVE)
== END 2022-06-10 13:49 | disposition home or self-care (01) ==
LOC: ED 15:41 → 2S 15:41 → SUATTDRO 18:23 → 2S 20:20